=== PATIENT | male | born 1970 | race Hispanic/Latino ===

== ENCOUNTER 2017-10-05 20:24 | Emergency (ER) | payer BC ==
--- NOTE | 2017-10-05 23:28 | Emergency Department Report ---
Eye Injury/Foreign Body - HPI Eye Location: Left Severity: Moderate Eye Symptoms: Eye Pain: No, Blurred Vision: No, Eye Redness: No, Grinding/ Hammering Metal: No, Used Eye Protection: No, Contact Lens Use: No, Recalls Injury: No, Photophobia: No Other History: Patient is a 46-year-old male who is presenting with sudden vision loss in the inferior portion of his left vision field. Patient states 3 weeks ago he was working on a car and got hit in the eye with a car air filter. Patient since that time has had floaters seeing spots and colorless. Patient noted yesterday that he started seeing some dark shadows towards the bottom of his left visual field. This is worsened over the last 48 hours to the point where now he can only see half of visual field and feels as though there is a curtain being pulled upward. Patient states this is painless and the patient has no other complaints at this time. There is no tearing bleeding leakage from the ED Review of Systems ROS: Stated complaint: RETINAL DETACHMENT Other details as noted in HPI Comment: All other systems reviewed and negative ED Past Medical Hx - Past Medical History Previous Medical History?: No - Surgical History Past Surgical History?: No - Social History Smoking Status: Current Every Day Smoker Substance Use Type: Alcohol Eye Injury Exam - Exam General: Vital signs noted. No distress. Alert and acting appropriately. - Visual Acuity Left Eye Exam: Neither Injection, Neither Chemosis, Neither Abnormal Pupil, Neither EOMI, Neither Eye Foreign Body, Neither Lid Foreign Body, Neither Mucous Discharge, Neither Purulent Discharge, Neither Fluorescein Uptake, Neither Fluorescein Uptake (slit lamp), Neither Cell/Flare (slit lamp), Neither Corneal Edema, Neither Photophobia Exam: FUNDUS exam patient has good light reflex and and visualization of the vessels on the inferior portion of the fundus on the left however on the superior portion of the fundus there is a darkened area and no vessels able to be visualized ED Course Vital Signs 10/05/17 21:17 Temperature 98.2 F Pulse Rate 82 Respiratory 16 Rate Blood Pressure 132/74 O2 Sat by Pulse 100 Oximetry - Procedure Description Procedures done: Patient's eye was covered with Tegaderm and using ultrasound of able to determine that the patient did have a retinal detachment. When moving the patient's back and forth to see an insulation of the retina on ultrasound done by myself at bedside. ED Medical Decision Making - Medical Decision Making Patient is a 46-year-old male who is presenting with symptoms of retinal detachment. Patient states that in the past he was told that part of his retina was slightly detached and that this is something that he should watch out for. Patient will be referred to ophthalmology and will be discharged home Critical care attestation.: If time is entered above; I have spent that time in minutes in the direct care of this critically ill patient, excluding procedure time. ED Disposition Clinical Impression: Traction detachment of left retina Disposition: DC-01 TO HOME OR SELFCARE Is pt being admited?: No Does the pt Need Aspirin: No Condition: Stable Referrals: LEYDA KAUR MD [Staff Physician] - 24 Hours
[2017-10-06 00:32] VITALS: BP 112/65
== END 2017-10-05 23:35 | disposition home or self-care (01) ==
LOC: ED 20:24
DX: H33.42 Traction detachment of retina, left eye (principal); F17.200 Nicotine dependence, unspecified, uncomplicated; Z88.2 Allergy status to sulfonamides; Z88.0 Allergy status to penicillin
CPT/HCPCS: 99282